=== PATIENT | female | born 1975 | race Caucasian/White ===

== ENCOUNTER 2019-12-03 07:00 | Day surgery (SDC) | payer BC ==
[2019-11-26 10:28] LABS: HEMATOCRIT 43.6 % (36.0-47.0); HEMOGLOBIN 15.1 g/dL (12.0-15.5); MEAN CORPUSCULAR HEMOGLOBIN 31.4 pg (27.0-33.4); MEAN CORPUSCULAR HGB CONC 34.7 g/dL (32.0-36.0); MEAN CORPUSCULAR VOLUME 90 fl (80-97); PLATELET COUNT 252 10^3/uL (150-450); RED BLOOD COUNT 4.82 10^6/uL (3.72-5.28); WHITE BLOOD COUNT 8.4 10^3/uL (4.0-10.5)
[2019-11-26 10:36] LABS: APPEARANCE,URINE SLIGHTLY-CLOUDY; BILIRUBIN,URINE NEGATIVE (NEGATIVE); COLOR,URINE YELLOW; GLUCOSE, URINE NEGATIVE (NEGATIVE); KETONES,URINE NEGATIVE (NEGATIVE); LEUKOCYTE ESTERASE,URINE NEGATIVE (NEGATIVE); NITRITE,URINE NEGATIVE (NEGATIVE); PROTEIN,URINE NEGATIVE (NEGATIVE); URINE SPECIFIC GRAVITY 1.017; UROBILINOGEN,URINE NEGATIVE mg/dL (<2.0)
[2019-11-26 10:53] LABS: ANION GAP 10 (5-19); BLOOD UREA NITROGEN 21 mg/dL (7-20); CALCIUM 9.4 mg/dL (8.4-10.2); CARBON DIOXIDE 25 mmol/L (22-30); CHLORIDE 101 mmol/L (98-107); GLUCOSE 90 mg/dL (75-110); POTASSIUM 4.6 mmol/L (3.6-5.0)
[~2019-12-03 07:00] MED LIST: CEFAZOLIN 1 GM/D5W RTU 1 GM/50 ML RTUPB IV PRN; LACTATED RINGERS 1000 ML IV PRN; LIDOCAINE 0.5% INJ-PF (5 MG/ML) 50 ML SDV SUBCUT PRN
[2019-12-03] MEDS ORDERED: PROPOFOL INJ 200 MG/20 ML VIAL IV ONE (07:12)
[2019-12-03] MEDS ORDERED: DEXAMETHASONE SOD PHOSPHATE INJ 4 MG/1 ML VIAL ONE (07:12)
[2019-12-03] MEDS ORDERED: ONDANSETRON HCL INJ/PF 4 MG/2 ML SDV ONE (07:12)
[2019-12-03] MEDS ORDERED: MIDAZOLAM 2 MG/2 ML INJ ONE (07:12)
[2019-12-03] MEDS ORDERED: FENTANYL CITRATE INJ/PF 100 MCG/2 ML AMPUL ONE (07:12)
[2019-12-03] MEDS ORDERED: CEFAZOLIN 1 GM/D5W RTU 1 GM/50 ML RTUPB IV ONE (07:40)
--- NOTE | 2019-12-03 09:42 | Operative Report ---
Operative Report DATE OF SURGERY: 12/03/19 PREOPERATIVE DIAGNOSIS: Menorrhagia POSTOPERATIVE DIAGNOSIS: Same OPERATION: Hysteroscopy NovaSure ablation SURGEON: ARCADIO BYRD ANESTHESIA: GA TISSUE REMOVED OR ALTERED: None COMPLICATIONS: None ESTIMATED BLOOD LOSS: 5 mL's INTRAOPERATIVE FINDINGS: An enlarged uterus measuring 6.5 cm length 4.5 cm with no intracavitary lesions were noted normal tubal ostia were appreciated bladder was left undrained during the procedure under EUA no adnexal masses were noted PROCEDURE: INDICATIONS FOR PROCEDURE: The patient had abnormal uterine bleeding for several months unresponsive to usual outpatient management. The usual risks of bleeding, infection, anesthesia, and damage to organs and tissues had been discussed with the patient and understood. No guarantee of complete amenorrhea has been established. Fertility is not an option. PROCEDURE: The patient was taken to the operating room, placed in a modified lithotomy position. After adequate anesthesia was ascertained, we prepped and draped in the usual manner for a hysteroscopy . The cervix readily admitted dilators. A single-tooth tenaculum was placed on the anterior lip of the cervix after anesthesia was instilled. Hysteroscopy ensued. A endometrial cavity was noted and measurements taken. Novasure was deployed and fired. Shayy 6.5 x 4.5; 1:45sec, 95 w-s power Re-scope confirmed good burn and integrity of the organ. Bleeding was nil at the completion of the procedure .
[2019-12-03] MEDS ORDERED: RINGERS SOLUTION,LACTATED 1,000 ML IV PRN (10:06)
[2019-12-03] MEDS ORDERED: OXYCODONE-ACETAMINOPHEN 5-325 MG TABLET PO PRN ×2 (10:07)
[2019-12-03] MEDS ORDERED: MORPHINE SULFATE 10 MG/ML INJ IM PRN (10:08)
[2019-12-03] MEDS ORDERED: MORPHINE SULFATE 10 MG/ML INJ INJ PRN ×2 (10:08)
[2019-12-03] MEDS ORDERED: PROMETHAZINE HCL INJ 25 MG/1 ML VIAL IM PRN (10:09)
[2019-12-03] MEDS ORDERED: OXYCODONE-ACETAMINOPHEN 5-325 MG TABLET ONE (10:42)
[2019-12-03] MEDS ORDERED: IBUPROFEN 800 MG TABLET ONE (11:18)
[2019-12-03 12:47] VITALS: BP 138/101
[2019-12-03] MEDS ORDERED: IBUPROFEN 800 MG TABLET PO SCH (14:00)
== END 2019-12-03 11:55 | disposition home or self-care (01) ==
LOC: OROUT 07:00
PROVIDERS: ATTEND Specialist
DX: N92.0 Excessive and frequent menstruation with regular cycle (principal); N85.2 Hypertrophy of uterus; Z87.891 Personal history of nicotine dependence; Z03.818 Encounter for observation for suspected exposure to other biological agents ruled out
CPT/HCPCS: 86900; 86901; 36415; 86850; 85027; 87635; 81025; 80048; 81001; 58563; J2250; J0690; J1100; J3010; J2405; J2704; 952